=== PATIENT | female | born 1990 | race Caucasian/White ===

== ENCOUNTER 2017-11-14 19:42 | Emergency (ER) | payer SELFPAY ==
--- NOTE | 2017-11-14 21:16 | RAD ---
CHEST PA AND LATERAL TWO VIEWS: 11/14/17 HISTORY: 27-year-old female with fever, bodyaches, headache, vomiting, sore throat and fever. Heart size is normal. The lungs are clear. No pneumonia, edema, pleural effusion or other acute proce ss. IMPRESSION: No acute intrathoracic disease. No evidence for pneumonia. POS: [facility]
[2017-11-14] MEDS ORDERED: Ketorolac Tromethamine 30 MG/ML VIAL ONE (21:34)
[2017-11-14] MEDS ORDERED: Acetaminophen 500 MG TAB ONE (21:34)
[2017-11-14] MEDS ORDERED: Metoclopramide HCl 10 MG/2 ML VIAL ONE (21:34)
[2017-11-14] MEDS ORDERED: diphenhydrAMINE 50 MG/ML VIAL ONE (21:34)
== END 2017-11-14 23:11 | disposition home or self-care (01) ==
LOC: ERS 19:42
DX: M79.1 Myalgia (principal); R05 Cough; F17.210 Nicotine dependence, cigarettes, uncomplicated
CPT/HCPCS: 36415; 71020; 84703; 96365; 96366; 96375; 99406; J1200; J1885; J2765

== ENCOUNTER 2017-11-18 17:42 | Emergency (ER) | payer SELFPAY ==
--- NOTE | 2017-11-18 18:58 | RAD ---
CHEST TWO VIEWS: 11/18/17 HISTORY: Severe rib pain after coughing. Heart size appears slightly enlarged. Mediastinal structures are unremarkable. The lungs are clear of any infiltrates. I do not visualize an rib fractures. No signs of pleural effusions. IMPRESSION: Minimal cardiomegaly. POS: [facility]
[2017-11-18] MEDS ORDERED: Ketorolac Tromethamine 60 MG/2 ML VIAL ONE (19:08)
== END 2017-11-18 19:30 | disposition home or self-care (01) ==
LOC: ERS 17:42
DX: M94.0 Chondrocostal junction syndrome [Tietze] (principal); F17.210 Nicotine dependence, cigarettes, uncomplicated; Z79.899 Other long term (current) drug therapy
CPT/HCPCS: 71020; 96372; J1885

== ENCOUNTER 2018-03-17 17:06 | Emergency (ER) | payer MEDICAID, SELFPAY ==
[2018-03-17 17:58] LABS: Bilirubin Negative (Negative); Blood, Urine Small (Negative); Clarity TURBID (Clear); Glucose, Urine (Dipstick) Negative (Negative); Leukocyte Large (Negative); Nitrite Negative (Negative); Protein, Urine (Dipstick) 30 mg/dL (Neg-Trace); pH, Urine 6.5 (5.0-9.0)
[2018-03-17] MEDS ORDERED: Acetaminophen 325 MG TAB ONE (17:58)
[2018-03-17 18:01] LABS: Bacteria/HPF Rare-Few HPF (None Seen); Squamous Epithelial 21-50 HPF (0-3)
[2018-03-17 18:02] LABS: Pathc Cast-AUWi Flag 5.18 (0-2.49); Yeast-AUWi Flag 141.3 (0-25.0)
[2018-03-17 18:14] LABS: Other Casts/LPF None Seen LPF (0-3 Hyaline); Trichomonas/HPF 1+ HPF (None Seen); Yeast-All Forms Rare HPF (None Seen)
== END 2018-03-17 19:58 | disposition home or self-care (01) ==
LOC: ERS 17:06
DX: O23.41 Unspecified infection of urinary tract in pregnancy, first trimester (principal); O98.811 Other maternal infectious and parasitic diseases complicating pregnancy, first trimester; A59.9 Trichomoniasis, unspecified; O99.89 Other specified diseases and conditions complicating pregnancy, childbirth and the puerperium; H66.91 Otitis media, unspecified, right ear; Z3A.01 Less than 8 weeks gestation of pregnancy
CPT/HCPCS: 36415; 81003; 81015; 84702; 99283

== ENCOUNTER 2018-11-09 17:20 | Emergency (ER) | payer OTHER, SELFPAY ==
[2018-11-09] MEDS ORDERED: Lidocaine 1% (PF) 30 ML VIAL ONE (17:26)
== END 2018-11-09 19:25 | disposition home or self-care (01) ==
LOC: ERS 17:20
DX: S61.412A Laceration without foreign body of left hand, initial encounter (principal); W26.8XXA Contact with other sharp object(s), not elsewhere classified, initial encounter
CPT/HCPCS: 12001; J2001

== ENCOUNTER 2018-11-23 11:34 | Emergency (ER) | payer OTHER | END 2018-11-23 12:04 | disposition home or self-care (01) | LOC: ERS 11:34 | DX: S61.012D Laceration without foreign body of left thumb without damage to nail, subsequent encounter (principal); S61.211D Laceration without foreign body of left index finger without damage to nail, subsequent encounter; X58.XXXA Exposure to other specified factors, initial encounter ==

== ENCOUNTER 2019-01-29 12:18 | Emergency (ER) | payer OTHER | END 2019-01-29 13:17 | disposition home or self-care (01) | LOC: ERS 12:18 | DX: J11.1 Influenza due to unidentified influenza virus with other respiratory manifestations (principal) | CPT/HCPCS: 99283 ==

== ENCOUNTER 2019-05-19 13:16 | Emergency (ER) | payer OTHER, SELFPAY ==
[2019-05-19] MEDS ORDERED: Diazepam 5 MG TAB ONE (14:12)
[2019-05-19] MEDS ORDERED: Ketorolac Tromethamine 60 MG/2 ML VIAL ONE (14:13)
== END 2019-05-19 14:44 | disposition home or self-care (01) ==
LOC: ERS 13:16
DX: M54.5 Low back pain (principal); F17.290 Nicotine dependence, other tobacco product, uncomplicated
CPT/HCPCS: 96372; J1885

== ENCOUNTER 2019-05-20 15:02 | Emergency (ER) | payer OTHER, SELFPAY ==
[2019-05-20 15:55] LABS: #Eosinphils 0.1 thou/uL (0.0-0.7); #Lymphocytes 1.8 thou/uL (1.20-3.40); #Monocytes 0.4 thou/uL (0.11-0.59); %Basophils 0.4 % (0.0-1.0); %Eosinophils 1.1 % (0.0-10.0); %Lymphocytes 34.2 % (21.0-51.0); %Monocytes 7.8 % (0.0-10.0); %Neutrophils 56.5 % (42.0-75.0); Hemoglobin 14.4 g/dL (12.0-16.0); Mean Corpuscular HGB CONC 36.4 g/dL (32.0-36.0); Mean Corpuscular Hemoglobin 30.5 pg (27.0-31.0); Mean Corpuscular Volume 83.7 fL (78.0-98.0); Mean Platelet Volume 8.2 fL (7.4-10.4); Platelet Count 204 thou/uL (130-400); RBC Distribution Width 14.9 % (11.5-14.5); Red Blood Cell (RBC) Count 4.73 mill/uL (4.20-5.40); White Blood Cell (WBC) Count 5.4 thou/uL (4.8-10.8)
[2019-05-20] MEDS ORDERED: Ketorolac Tromethamine 30 MG/ML VIAL ONE ×2 (15:59→16:47)
[2019-05-20] MEDS ORDERED: Lorazepam 2 MG/ML VIAL ONE (15:59)
[2019-05-20] MEDS ORDERED: Dexamethasone 4 mg/ml Vial ONE ×2 (15:59→16:00)
[2019-05-20 16:05] LABS: BHCG - Serum Negative (NEGATIVE); Pregs Control Background? CLEAR/WHITE (CLR/WHITE); Pregs Control Bar Appear? YES (CONTROL BAR)
[2019-05-20 16:17] LABS: ALT (SGPT) 10 U/L (8-55); AST (SGOT) 13 U/L (5-34); Albumin 3.8 g/dL (3.5-5.0); Alkaline Phosphatase 51 U/L (40-150); Anion Gap 11 mmol/L (10-20); BUN (Urea Nitrogen) 6 mg/dL (7.0-18.7); Bilirubin, Total 0.5 mg/dL (0.2-1.2); Calc. Creatinine Clearance 0 mL/min (70-130); Calcium 8.5 mg/dL (7.8-10.44); Carbon Dioxide 22 mmol/L (22-29); Chloride 108 mmol/L (98-107); Estimated GFR-MDRD Greater than 90; Globulin 2.2 g/dL (2.4-3.5); Glucose 73 mg/dL (70-105); Lipase 27 U/L (8-78); Sodium 137 mmol/L (136-145)
--- NOTE | 2019-05-20 16:30 | CT ---
EXAM: CT of the lumbar spine without contrast HISTORY: Low back pain COMPARISON: None TECHNIQUE: Multiple contiguous axial images were obtained in a CT of the lumbar spine without contras t. Sagittal and coronal reformats were performed. FINDINGS: The vertebral bodies and intervertebral discs demonstrate normal height and alignment witho ut fracture or subluxation. . No degenerative changes are present. A 2 mm calcification is seen in the left kidney which is nonobstructing.. The other prevertebral an d paraspinal soft tissues are unremarkable. IMPRESSION: 1. No evidence of acute osseous abnormality of the lumbar spine. 2. Nonobstructing tiny left renal calcification
[2019-05-20] MEDS ORDERED: Fentanyl 100 MCG/2 ML VIAL ONE (17:23)
== END 2019-05-20 18:15 | disposition home or self-care (01) ==
LOC: ERS 15:02
DX: M54.5 Low back pain (principal); F17.290 Nicotine dependence, other tobacco product, uncomplicated
CPT/HCPCS: 36415; 72131; 80053; 83690; 84703; 85025; 85652; 86140; 96374; 96375; J1100; J1885; J2060; J3010

== ENCOUNTER 2019-08-14 06:25 | Emergency (ER) | payer SELFPAY ==
[2019-08-14 07:42] LABS: #Lymphocytes 1.2 thou/uL (1.20-3.40); #Monocytes 0.4 thou/uL (0.11-0.59); #Neutrophils 3.5 thou/uL (1.40-6.50); %Basophils 0.2 % (0.0-1.0); %Eosinophils 0.6 % (0.0-10.0); %Lymphocytes 23.4 % (21.0-51.0); %Monocytes 7.9 % (0.0-10.0); %Neutrophils 67.8 % (42.0-75.0); Hemoglobin 12.4 g/dL (12.0-16.0); Mean Corpuscular HGB CONC 33.6 g/dL (32.0-36.0); Mean Corpuscular Hemoglobin 28.2 pg (27.0-31.0); Mean Platelet Volume 8.6 fL (7.4-10.4); Platelet Count 169 thou/uL (130-400); RBC Distribution Width 13.6 % (11.5-14.5); White Blood Cell (WBC) Count 5.1 thou/uL (4.8-10.8)
--- NOTE | 2019-08-14 08:44 | ULT ---
EXAM: US Pelvic W Doppler PROVIDED CLINICAL HISTORY: Vaginal bleeding COMPARISON: None FINDINGS: Single live intrauterine gestation is documented, 13 weeks 4 days by crown-rump length. heart r ate 1 49 bpm documented. Right ovary appears unremarkable. Flow is documented with color Doppler and spectral analysis. The left ovary is not distinctly identified. There is no evidence for free pel brenden fluid. There is no evidence for subchorionic hemorrhage. IMPRESSION: Single live intrauterine gestation, 13 weeks 4 days by crown-rump length. Correlation with standard f ollow-up anatomic survey recommended.
[2019-08-14 08:55] LABS: Bilirubin Negative (Negative); Blood, Urine Trace (Negative); Clarity Turbid (Clear); Glucose, Urine (Dipstick) Normal (Negative); Leukocyte 500 Leu/uL (Negative); Nitrite Negative (Negative); Protein, Urine (Dipstick) 10 mg/dL (Neg-Trace); Urobilinogen Normal mg/dL (Less than 2); WBC/HPF Greater than 50 HPF (0-3)
[2019-08-14 08:57] LABS: Bacteria/HPF 1+ HPF (None Seen)
[2019-08-16 19:48] LABS: Chlamydia by PCR Not Detected (NotDetected); GC by PCR Not Detected (NotDetected)
== END 2019-08-14 08:53 | disposition home or self-care (01) ==
LOC: ERS 06:25
DX: O20.0 Threatened abortion (principal); Z3A.13 13 weeks gestation of pregnancy
CPT/HCPCS: 36415; 76856; 81003; 81015; 84702; 85025; 86900; 86901; 87480; 87491; 87510; 87591; 87660; 93976

== ENCOUNTER 2020-05-27 15:44 | Emergency (ER) | payer OTHER, SELFPAY ==
[2020-05-28 12:09] LABS: SARS-CoV-2 MS2 Positive; SARS-CoV-2 N Gene Negative; SARS-CoV-2 S Gene Negative; SARS-CoV-2 orf1ab Negative
== END 2020-05-27 16:04 | disposition home or self-care (01) ==
LOC: ERS 15:44
DX: R51 Headache (principal); R19.7 Diarrhea, unspecified; Z20.828 Contact with and (suspected) exposure to other viral communicable diseases
CPT/HCPCS: 87635; U0003

== ENCOUNTER 2020-07-26 12:05 | Emergency (ER) | payer OTHER ==
[2020-07-26] MEDS ORDERED: Metoclopramide HCl 10 MG TAB ONE (12:47)
[2020-07-26] MEDS ORDERED: Naproxen 500 MG TAB ONE (12:47)
== END 2020-07-26 14:25 | disposition home or self-care (01) ==
LOC: ERS 12:05
DX: R51 Headache (principal)
CPT/HCPCS: 99283

== ENCOUNTER 2020-08-27 11:42 | Emergency (ER) | payer OTHER ==
[2020-08-27] MEDS ORDERED: diphenhydrAMINE 50 MG/ML VIAL ONE (12:05)
[2020-08-27] MEDS ORDERED: Metoclopramide HCl 10 MG/2 ML VIAL ONE (12:05)
[2020-08-27] MEDS ORDERED: Magnesium 2 GM/50 ML BAG (IN WATER) ONE (12:06)
== END 2020-08-27 12:52 | disposition home or self-care (01) ==
LOC: ERS 11:42
DX: H66.91 Otitis media, unspecified, right ear (principal); R51.9 Headache, unspecified
CPT/HCPCS: J1200; J2765; J3475

== ENCOUNTER 2020-12-12 17:13 | Emergency (ER) | payer OTHER ==
[2020-12-12 17:43] LABS: #Lymphocytes 1.9 thou/uL (1.20-3.40); #Monocytes 0.5 thou/uL (0.11-0.59); %Basophils 0.5 % (0.0-1.0); %Eosinophils 0.8 % (0.0-10.0); %Lymphocytes 29.4 % (21.0-51.0); %Neutrophils 61.3 % (42.0-75.0); Hemoglobin 12.5 g/dL (12.0-16.0); Mean Corpuscular HGB CONC 32.3 g/dL (32.0-36.0); Mean Corpuscular Hemoglobin 27.7 pg (27.0-31.0); Mean Corpuscular Volume 85.6 fL (78.0-98.0); Mean Platelet Volume 8.2 fL (7.4-10.4); Platelet Count 219 thou/uL (130-400); Red Blood Cell (RBC) Count 4.52 mill/uL (4.20-5.40); White Blood Cell (WBC) Count 6.6 thou/uL (4.8-10.8)
[2020-12-12 18:11] LABS: Bacteria/HPF None Seen HPF (None Seen); Bilirubin Negative (Negative); Blood, Urine Negative (Negative); Clarity Clear (Clear); Glucose, Urine (Dipstick) Normal (Negative); Ketone, Urine Negative (Negative); Leukocyte 500 Leu/uL (Negative); Nitrite Negative (Negative); Protein, Urine (Dipstick) Negative (Neg-Trace); RBC/HPF None Seen HPF (0-3); Specific Gravity, Urine 1.007 (1.002-1.036); Squamous Epithelial 0-3 HPF (0-3); Urobilinogen Normal mg/dL (Less than 2); pH, Urine 7.5 (5.0-9.0)
[2020-12-12 18:15] LABS: Pregnancy Test - Urine (BHCG) Negative (Negative); Pregu Control Background? CLEAR/WHITE (CLR/WHITE); Pregu Control Bar Appear? YES (CONTROL BAR); Specific Gravity 1.007 (1.002-1.036)
[2020-12-12 18:18] LABS: ALT (SGPT) 16 U/L (8-55); AST (SGOT) 17 U/L (5-34); Albumin 4.4 g/dL (3.5-5.0); Alkaline Phosphatase 82 U/L (40-110); Anion Gap 11 mmol/L (10-20); BUN (Urea Nitrogen) 7 mg/dL (7.0-18.7); Bilirubin, Total 0.3 mg/dL (0.2-1.2); Calc. Creatinine Clearance 0 mL/min (70-130); Calcium 9.3 mg/dL (7.8-10.44); Carbon Dioxide 26 mmol/L (22-29); Chloride 107 mmol/L (98-107); Globulin 2.9 g/dL (2.4-3.5); Glucose 94 mg/dL (70-105); Lipase 33 U/L (8-78); Potassium 3.8 mmol/L (3.5-5.1); Protein, Total 7.3 g/dL (6.0-8.3); Sodium 140 mmol/L (136-145)
== END 2020-12-12 19:13 | disposition home or self-care (01) ==
LOC: ERS 17:13
DX: R10.32 Left lower quadrant pain (principal); R10.31 Right lower quadrant pain; G43.909 Migraine, unspecified, not intractable, without status migrainosus
CPT/HCPCS: 36415; 80053; 81003; 81015; 81025; 83690; 85025; 99284

== ENCOUNTER 2021-08-03 12:21 | Emergency (ER) | payer OTHER | END 2021-08-03 13:50 | disposition home or self-care (01) | LOC: ERS 12:21 | DX: J02.9 Acute pharyngitis, unspecified (principal); G43.909 Migraine, unspecified, not intractable, without status migrainosus | CPT/HCPCS: 87081; 87430; 99283 ==

== ENCOUNTER 2021-09-24 22:21 | Emergency (ER) | payer OTHER | END 2021-09-24 23:30 | disposition left against medical advice (07) | LOC: ERS 22:21 | DX: Z53.21 Procedure and treatment not carried out due to patient leaving prior to being seen by health care provider (principal) ==

== ENCOUNTER 2021-09-26 23:40 | Emergency (ER) | payer OTHER ==
[2021-09-27 12:13] LABS: SARS-CoV-2 PCR by NAA Not Detected (NotDetected)
== END 2021-09-27 00:56 | disposition home or self-care (01) ==
LOC: ERS 23:40
DX: R07.89 Other chest pain (principal); Z20.822 Contact with and (suspected) exposure to COVID-19
CPT/HCPCS: 71045; 93005; U0003; U0005